=== PATIENT | female | born 1965 | race Caucasian/White ===

== ENCOUNTER 2019-09-29 16:41 | Emergency (ER) | payer SELFPAY ==
[~2019-09-29] VITALS: Ht 154.9 cm; Wt 56.7 kg
[2019-09-29 16:43] VITALS: BP 149/89
--- NOTE | 2019-09-29 17:04 | NUR ---
PATIENT WAS WHEELCHAIRED TO BED 01
--- NOTE | 2019-09-29 17:28 | NUR ---
[employer] AT BEDSIDE WITH W/C.
--- NOTE | 2019-09-29 17:28 | NUR ---
53/F C/O LT HIP BACK, LT SHOULDER, UPPER BACK PAIN S/P MECHANICAL SLIP AND FALL TODAY WHILE GOING UP ESCALATOR. PAIN GREATEST AT LT HIP. DENIES HEAD INJURY AND LOC. PAIN WORSENED BY MOVEMENT 03/21 [place]ARP. APPEARS IN MILD DISTRESS. HX- DENIES Addendum: 09/29/19 at 1731 by CAYDEN WAS ABLE TO TRANSFER FROM W/C TO [facility].
[2019-09-29] MEDS ORDERED: KETOROLAC 60 MG/2 ML VIAL IM ONE (17:50)
[2019-09-29 18:43] VITALS: BP 128/58
--- NOTE | 2019-09-29 18:43 | NUR ---
Patient discharged with v/s stable. Written and verbal after care instructions given and explained. Patient alert, oriented and verbalized understanding of instructions. Ambulatory with steady gait. All questions addressed prior to discharge. ID band removed. Patient advised to follow up with PMD. Rx of ROBAXIN AND MOTRIN given. Patient educated on indication of medication including possible reaction and side effects. Opportunity to ask questions provided and answered.
== END 2019-09-29 18:45 | disposition home or self-care (01) ==
LOC: MED 16:41
DX: M54.40 Lumbago with sciatica, unspecified side (principal)
CPT/HCPCS: 72100; 81002; 81025; 96372; 99283; J1885